=== PATIENT | male | born 1955 | race American Indian/Alaskan Native ===

== ENCOUNTER 2019-01-02 03:55 | Emergency (ER) | payer MEDICARE ==
[2019-01-02 04:04] VITALS: BP 131/79
[2019-01-02] MEDS ORDERED: TORADOL IM ONE (05:44)
[2019-01-02] MEDS ORDERED: DECADRON IM ONE (05:44)
--- NOTE | 2019-01-02 06:33 | Emergency Department Report ---
ED Back Pain/Injury HPI - General Chief Complaint: Extremity Injury, Lower Stated Complaint: BACK/HIP PAIN Source: patient Limitations: No Limitations - History of Present Illness Initial Comments: Patient is a 63-year-old -Cypriot male with a history of chronic lumbar radiculopathy presents to the ED with complaint of acute exacerbation of his chronic low back pain that radiates to his right hip and right thigh for the last 5 days. Patient states that the last time he had similar pain was about 5 years ago when he came to the ED and was given a steroid injection and pain medication. Patient states that he has never had similar episodes since then. Patient denies fall, heavy lifting, traumatic injury, hematuria, dysuria, testicular pain, abdominal pain, chest pain, shortness of breath, fever, chills, dizziness, numbness and tingling or weakness of lower extremities bilaterally, urinary or bowel incontinence and saddle paresthesia. MD Complaint: back pain, other (pain radiates to his right thigh and hip) -: Sudden, days(s) (5) Similar Symptoms Previously: Yes (chronic lumbar radiculopathy) Place: home Radiation: right leg Severity: severe Severity scale (0 -10): 8 Quality: sharp, aching, tingling Consistency: constant Improves With: none Worsens With: movement Context: turning/twisting, bending Associated Symptoms: denies other symptoms, difficulty walking (due to pain). denies: confusion, weakness, chest pain, numbness, incontinence, constipation, abdominal pain, rash, shortness of breath Treatments Prior to Arrival: NSAIDS - Related Data Previous Rx's Medication Instructions Recorded Last Taken Type Naproxen [Naprosyn] 500 mg PO Q12H PRN #20 tablet 01/02/19 Unknown Rx predniSONE [Deltasone] 40 mg PO QDAY #10 tab 01/02/19 Unknown Rx tiZANidine [Zanaflex 4mg TAB] 4 mg PO QHS PRN #12 tablet 01/02/19 Unknown Rx traMADol [Ultram] 50 mg PO Q6HR PRN #15 tablet 01/02/19 Unknown Rx Allergies Allergy/AdvReac Type Severity Reaction Status Date / Time No Known Allergies Allergy Verified 01/02/19 04:02 ED Review of Systems ROS: Stated complaint: BACK/HIP PAIN Other details as noted in HPI Constitutional: denies: chills, fever Eyes: denies: eye pain, eye discharge, vision change ENT: denies: ear pain, throat pain Respiratory: denies: cough, shortness of breath, wheezing Cardiovascular: denies: chest pain, palpitations Endocrine: no symptoms reported Gastrointestinal: denies: abdominal pain, nausea, diarrhea Genitourinary: denies: urgency, dysuria Musculoskeletal: back pain, arthralgia (right hip). denies: joint swelling Skin: denies: rash, lesions Neurological: denies: headache, weakness, paresthesias Psychiatric: denies: anxiety, depression Hematological/Lymphatic: denies: easy bleeding, easy bruising ED Past Medical Hx - Past Medical History Previous Medical History?: No - Surgical History Past Surgical History?: Yes Additional Surgical History: remove cyst form buttock. - Social History Smoking Status: Current Every Day Smoker Substance Use Type: Alcohol - Medications Home Medications: Home Medications Medication Instructions Recorded Confirmed Last Taken Type Naproxen [Naprosyn] 500 mg PO Q12H PRN #20 tablet 01/02/19 Unknown Rx predniSONE [Deltasone] 40 mg PO QDAY #10 tab 01/02/19 Unknown Rx tiZANidine [Zanaflex 4mg TAB] 4 mg PO QHS PRN #12 tablet 01/02/19 Unknown Rx traMADol [Ultram] 50 mg PO Q6HR PRN #15 tablet 01/02/19 Unknown Rx ED Physical Exam - General Limitations: Physical Limitation General appearance: alert, in no apparent distress - Head Head exam: Present: atraumatic, normocephalic, normal inspection - Eye Eye exam: Present: normal appearance, PERRL, EOMI Pupils: Present: normal accommodation - ENT ENT exam: Present: normal exam, normal orophraynx, mucous membranes moist, TM's normal bilaterally, normal external ear exam - Neck Neck exam: Present: normal inspection, full ROM - Respiratory Respiratory exam: Present: normal lung sounds bilaterally. Absent: respiratory distress, wheezes, rales, rhonchi, chest wall tenderness, decreased breath sounds, prolonged expiratory - Cardiovascular Cardiovascular Exam: Present: regular rate, normal rhythm, normal heart sounds. Absent: systolic murmur, diastolic murmur, rubs, gallop - GI/Abdominal GI/Abdominal exam: Present: soft, normal bowel sounds. Absent: distended, tenderness, guarding, rebound, hyperactive bowel sounds, hypoactive bowel sounds, organomegaly - Rectal Rectal exam: Present: deferred - Extremities Exam Extremities exam: Present: normal inspection, full ROM, tenderness (right hip), normal capillary refill - Back Exam Back exam: Present: normal inspection, full ROM, tenderness (palpable lumbosacral paraspinal musculoskeletal tenderness), muscle spasm, paraspinal tenderness - Neurological Exam Neurological exam: Present: alert, oriented X3, CN II-XII intact, normal gait, reflexes normal - Psychiatric Psychiatric exam: Present: normal affect, normal mood - Skin Skin exam: Present: warm, dry, intact, normal color. Absent: rash ED Course Vital Signs 01/02/19 04:03 Temperature 98.0 F Pulse Rate 86 Respiratory 18 Rate Blood Pressure 131/79 O2 Sat by Pulse 98 Oximetry - Reevaluation(s) Reevaluation #1: 01/02/19 06:31 This is a 63-year-old male with a history of chronic lumbar radiculopathy who presents to the ED with complaint of acute exacerbation of chronic low back pain that radiates to right hip and right thigh for 5 days. In the ED, patient is alert and oriented 3 and is not in distress but appears to be in pain. Patient walking in the ED with aid of a walking cane. Patient was treated for pain in the ED since this is a chronic pain. On reevaluation, patient's pain is well-controlled with medication. Patient was discharged home on pain medications and muscle relaxants and advised to follow-up with his primary care physician in 5-7 days for reevaluation or return to the ED immediately if symptoms get worse. ED Medical Decision Making - Medical Decision Making This is a 63-year-old male with a history of chronic lumbar radiculopathy who presents to the ED with complaint of acute exacerbation of chronic low back pain that radiates to right hip and right thigh for 5 days. In the ED, patient is alert and oriented 3 and is not in distress but appears to be in pain. Patient walking in the ED with aid of a walking cane. Patient was treated for pain in the ED since this is a chronic pain. On reevaluation, patient's pain is well-controlled with medication. Patient was discharged home on pain medications and muscle relaxants and advised to follow-up with his primary care physician in 5-7 days for reevaluation or return to the ED immediately if symptoms get worse. - Differential Diagnosis Chronic sciatica; Muscle spasm of back; Chronic osteoarthritis Critical care attestation.: If time is entered above; I have spent that time in minutes in the direct care of this critically ill patient, excluding procedure time. ED Disposition Clinical Impression: Chronic lumbar radiculopathy, Spasm of muscle of lower back Disposition: TO HOME OR SELFCARE Is pt being admited?: No Does the pt Need Aspirin: No Condition: Stable Instructions: Lumbar Radiculopathy (ED), Muscle Spasm (ED), Chronic Back Pain (ED) Additional Instructions: Take medications with food, drink plenty of fluids and follow-up with your primary care physician in 5-7 days for reevaluation. Return to the ED immediately if symptoms get worse. Prescriptions: tiZANidine [Zanaflex 4mg TAB] 4 mg PO QHS PRN #12 tablet PRN Reason: Muscle Spasm predniSONE [Deltasone] 40 mg PO QDAY #10 tab Naproxen [Naprosyn] 500 mg PO Q12H PRN #20 tablet PRN Reason: Pain , Severe (7-10) traMADol [Ultram] 50 mg PO Q6HR PRN #15 tablet PRN Reason: Pain Referrals: [facility] [Outside] - 3-5 Days Time of Disposition: 06:35 Print Language: GREENLANDIC
== END 2019-01-02 06:55 | disposition home or self-care (01) ==
LOC: ED 03:55
DX: M54.16 Radiculopathy, lumbar region (principal); G89.29 Other chronic pain; M25.551 Pain in right hip; M79.651 Pain in right thigh; Z79.899 Other long term (current) drug therapy; F17.200 Nicotine dependence, unspecified, uncomplicated
CPT/HCPCS: 96372; 99282; J1100; J1885

== ENCOUNTER 2021-04-22 04:10 | Emergency (ER) | payer MEDICARE, OTHER ==
[2021-04-22] MEDS ORDERED: dexAMETHasone 20 MG/5 ML VIAL IM ONE (08:59)
--- NOTE | 2021-04-22 09:00 | Emergency Department Report ---
ED Back Pain/Injury HPI - General Chief Complaint: Extremity Injury, Lower Stated Complaint: hip and leg pain Time Seen by Provider: 04/22/21 08:54 Source: patient Limitations: No Limitations - History of Present Illness Initial Comments: This is a pleasant 66-year-old male with a past medical history of hypertension who presents the emergency department chief complaint of right-sided upper buttocks pain that radiates down the back of his right leg has been present over the past few days. He states he has a history of lumbosacral radiculopathy from herniated disks from many years ago from the and will have occasional pains like this. He states usually only thing that will help this when he gets a shot of medication in the ER. He denies any saddle anesthesia, urinary or bowel incontinence, urinary retention, fever, chills, night sweats, headache, dizziness, blurry vision, nausea, vomit, diarrhea, chest pain, shortness of breath, weakness or any other associated symptoms. - Related Data Previous Rx's Medication Instructions Recorded Last Taken Type Naproxen [Naprosyn] 500 mg PO Q12H PRN #20 tablet 01/02/19 Unknown Rx predniSONE [Deltasone] 40 mg PO QDAY #10 tab 01/02/19 Unknown Rx tiZANidine [Zanaflex 4mg TAB] 4 mg PO QHS PRN #12 tablet 01/02/19 Unknown Rx traMADoL [Ultram] 50 mg PO Q6HR PRN #15 tablet 01/02/19 Unknown Rx methOCARBAMOL [Robaxin TAB] 500 mg PO Q6H PRN #20 tablet 04/22/21 Unknown Rx methylPREDNISolone [Medrol 4MG 4 mg PO ONCE #1 tab.ds.pk 04/22/21 Unknown Rx DOSEPAK (21 tabs)] traMADoL [Ultram 50 MG tab] 50 mg PO Q6HR PRN #12 tablet 04/22/21 Unknown Rx Allergies Allergy/AdvReac Type Severity Reaction Status Date / Time No Known Allergies Allergy Verified 01/02/19 04:02 ED Review of Systems ROS: Stated complaint: hip and leg pain Other details as noted in HPI Comment: All other systems reviewed and negative Constitutional: denies: chills, fever Eyes: denies: eye pain, eye discharge, vision change ENT: denies: ear pain, throat pain Respiratory: denies: cough, shortness of breath, wheezing Cardiovascular: denies: chest pain, palpitations Endocrine: no symptoms reported Gastrointestinal: denies: abdominal pain, nausea, diarrhea Genitourinary: denies: urgency, dysuria Musculoskeletal: as per HPI, back pain. denies: joint swelling, arthralgia Skin: denies: rash, lesions Neurological: denies: headache, weakness, paresthesias Psychiatric: denies: anxiety, depression Hematological/Lymphatic: denies: easy bleeding, easy bruising ED Past Medical Hx - Past Medical History Previous Medical History?: Yes Hx Hypertension: Yes - Surgical History Past Surgical History?: No Additional Surgical History: remove cyst form buttock. - Social History Smoking Status: Current Every Day Smoker Substance Use Type: Alcohol - Medications Home Medications: Home Medications Medication Instructions Recorded Confirmed Last Taken Type Naproxen [Naprosyn] 500 mg PO Q12H PRN #20 tablet 01/02/19 Unknown Rx predniSONE [Deltasone] 40 mg PO QDAY #10 tab 01/02/19 Unknown Rx tiZANidine [Zanaflex 4mg TAB] 4 mg PO QHS PRN #12 tablet 01/02/19 Unknown Rx traMADoL [Ultram] 50 mg PO Q6HR PRN #15 tablet 01/02/19 Unknown Rx methOCARBAMOL [Robaxin TAB] 500 mg PO Q6H PRN #20 tablet 04/22/21 Unknown Rx methylPREDNISolone [Medrol 4MG 4 mg PO ONCE #1 tab.ds.pk 04/22/21 Unknown Rx DOSEPAK (21 tabs)] traMADoL [Ultram 50 MG tab] 50 mg PO Q6HR PRN #12 tablet 04/22/21 Unknown Rx ED Physical Exam - General Limitations: No Limitations General appearance: alert, in no apparent distress - Head Head exam: Present: atraumatic, normocephalic - Eye Eye exam: Present: normal appearance, PERRL, EOMI Pupils: Present: normal accommodation - ENT ENT exam: Present: normal exam, normal orophraynx, mucous membranes moist - Neck Neck exam: Present: normal inspection. Absent: tenderness, meningismus - Respiratory Respiratory exam: Present: normal lung sounds bilaterally. Absent: respiratory distress, wheezes, rales, rhonchi, stridor - Cardiovascular Cardiovascular Exam: Present: regular rate, normal rhythm. Absent: systolic murmur, diastolic murmur, rubs, gallop - GI/Abdominal GI/Abdominal exam: Present: soft, normal bowel sounds. Absent: distended, tenderness, guarding, rebound, pulsatile mass - Rectal Rectal exam: Present: deferred - Extremities Exam Extremities exam: Present: normal inspection, full ROM. Absent: tenderness, calf tenderness (No posterior calf tenderness, negative Homans' sign bilaterally.) - Back Exam Back exam: Present: normal inspection - Neurological Exam Neurological exam: Present: alert, oriented X3, normal gait, reflexes normal (Normal deep tendon reflexes the bilateral patella and Achilles 2+ bilaterally.), other (Normal strength and sensation of the bilateral lower extremities. Normal strength with dorsiflexion and plantar flexion) - Psychiatric Psychiatric exam: Present: normal affect, normal mood - Skin Skin exam: Present: warm, dry, intact, normal color. Absent: rash ED Course Vital Signs 04/22/21 05:37 Temperature 97.8 F Pulse Rate 77 Respiratory 17 Rate Blood Pressure 126/85 [Left] O2 Sat by Pulse 98 Oximetry ED Medical Decision Making - Medical Decision Making Patient presenting with low back pain. No red flags. No history of cancer making my concern for metastatic disease low at this time. No injury making my suspicion for fracture or epidural hematoma unlikely. Patient has no history of IV drug use and no fever making spinal epidural abscess unlikely. Patient has a known history of herniated disc and this feels similar. He had no red flags for cauda equina syndrome with no saddle anesthesia, urinary or bowel incontinence, urinary retention making this unlikely. I will treat the patient with a short course of oral steroids, muscle relaxer and tramadol and recommended follow-up with his orthopedic surgeon. Return to the ER with any change or worsening symptoms. Verbalized understand these instructions and all of his questions were answered. - Differential Diagnosis Strain, sprain, HNP Critical care attestation.: If time is entered above; I have spent that time in minutes in the direct care of this critically ill patient, excluding procedure time. ED Disposition Clinical Impression: Acute low back pain Qualifiers: Back pain laterality: right Sciatica presence: with sciatica Sciatica laterality: sciatica of right side Qualified Code(s): M54.41 - Lumbago with sciatica, right side Disposition: 01 HOME / SELF CARE / HOMELESS Is pt being admited?: No Condition: Stable Instructions: Acute Back Pain, Adult Prescriptions: methylPREDNISolone [Medrol 4MG DOSEPAK (21 tabs)] 4 mg PO ONCE #1 tab.ds.pk methOCARBAMOL [Robaxin TAB] 500 mg PO Q6H PRN #20 tablet PRN Reason: Spasms traMADoL [Ultram 50 MG tab] 50 mg PO Q6HR PRN #12 tablet PRN Reason: Pain Referrals: [facility] [Provider Group] - 3-5 Days Time of Disposition: 08:59
[2021-04-22 09:21] VITALS: BP 125/76
== END 2021-04-22 09:20 | disposition home or self-care (01) ==
LOC: ED 04:10
DX: M54.41 Lumbago with sciatica, right side (principal)
CPT/HCPCS: 96372; 99282; J1100